=== PATIENT | female | born 1990 | race Two or more races ===

== ENCOUNTER 2017-12-18 14:04 | Emergency (ER) | END 2017-12-18 17:11 | disposition home or self-care (01) ==

== ENCOUNTER 2018-04-26 13:03 | Outpatient (CLI) | payer OTHER ==
[~2018-04-26] VITALS: Ht 144.8 cm; Wt 59.0 kg
[~2018-04-26 13:03] MED LIST: ACET500C5 PO; DENIES
[2018-04-26 14:14] VITALS: Ht 144.8 cm; Wt 59.0 kg
[2018-04-26] MEDS ORDERED: PNV11TAB PO (14:14)
[2018-04-26 14:16] VITALS: BP 106/71; PULSE 89; RESP 19
--- NOTE | 2018-04-26 16:05 | PN ---
Triage Information Date/Time Reason for visit: Patient was seen in dental clinic today, referred for antepartum testing and EFW for rule out IUGR Weeks of Gestation 37 weeks /Para G1 Diabetes: none Hypertention: none Objective Vital Signs Date Temp Pulse Resp B/P (MAP) Pulse Ox O2 O2 Flow FiO2 Time Delivery Rate 04/26/18 98.1 89 19 106/71 Room Air 14:16 (83) Heart Rate: 130's Contractions: None Disposition: Discharge Assessment/Plan 28-year-old 1 with single intrauterine at 37 weeks with a FUENTES of 05/23/[address] [facility] for antepartum testing and rule out IUGR. She states good movement. She denies nausea, vomiting, shortness of breath, chest pain, abdominal pain, headache, visual changes, vaginal bleeding or LOF. -FHR: No sign of metabolic acidosis- Category I -Contractions: None -Ultrasound performed: DEVENDRA 8.2, biophysical profile 8 out of 8. EFW 3064g. Patient reassured -Symptoms and sign of labor, preeclampsia, kick count discussed with patient, she voiced understanding. All of her questions answered. -Patient was discharged home in stable condition with the appropriate discharge instructions provided. I would like patient to have close follow-up with her primary physician or outpatient clinic in 1-2 days or return to triage for worsening symptoms or any other urgent concerns. VALERIA CULLEN Apr 26, 2018 16:05
--- NOTE | 2018-04-26 16:50 | TRIAGE ---
OB Triage Datetime Report Generated by CPN: 04/26/2018 16:50 Datetime: 04/26/2018 15:32 Vaginal Exam Dilatation (cms): 0.0 Effacement (%): 0 Station: -3 Exam By: A GHUKASYAN Datetime: 04/26/2018 15:29 Labor Evaluation Frequency: irregular Monitor Mode: External Duration (sec)2399: 60-150 Quality: Mild Pattern: Normal: <= 5 Contractions in 10 Minutes Resting Tone [place]: Relaxed Heart Rate FHR Baseline Rate: 140 Monitor Mode: External US FHR Baseline Changes: Bradycardia Variability: Moderate 6-25 bpm Accelerations: 15X15 Decelerations: None Category: Category I Datetime: 04/26/2018 14:21 Assessment Type: Triage Maternal Assessment Level of Consciousness: Fully Conscious DTR's/Clonus: DTRs 2+; No Clonus Headache: Denies Blurred Vision: No Respiratory Effort: Unlabored; Regular Rhythm; Equal Expansion Breath Sounds, Left: Clear and Equal Breath Sounds, Right: Clear and Equal Nausea/Vomiting: Denies RUQ Epigastric Pain: Denies Lower Extremities Edema: None Degree: None Upper Extremities Edema: None Degree: None Facial Edema: None Fall Risk Assessment History of Falling: (0) No Secondary Diagnosis: (0) No Ambulatory Aid: (0) Bedrest/Nurse Assist IV Therapy: (0) No Gait: (0) Normal/Bedrest/Immobile Mental Status: (0) Oriented to Own Ability Fall Score: 0 Fall Risk Score Definition: No Risk: No action required Labor Evaluation Frequency: OCCAS Monitor Mode: External Duration (sec)2399: 50-80 Quality: Mild Pattern: Normal: <= 5 Contractions in 10 Minutes Resting Tone [place]: Relaxed Heart Rate FHR Baseline Rate: 145 Monitor Mode: External US Variability: Moderate 6-25 bpm Accelerations: 15X15 Decelerations: None Category: Category I Datetime: 04/26/2018 14:19 Time of Arrival: 04/26/2018 12:59 EGA: 37.0 Arrived By: Ambulatory Arrived From: Office Chief Complaint: R/O IUGR Movement: Present Contractions: Denies/Absent Rupture of Membranes: Denies Vaginal Bleeding: None Vaginal Discharge: Denies Recent Sexual Intercouse: Denies Abdominal Trauma: Not Applicable Patient Complaints: Other Time Provider Notified: 04/26/2018 15:37 Provider Notified: DR CULLEN Initial Plan: JESSENIA LEALP EFW
== END 2018-04-26 15:55 | disposition home or self-care (01) ==
LOC: OBT 13:03 → L-D 13:04 → OBT 15:55
PROVIDERS: ATTEND Obstetrics & Gynecology
DX: O36.5930 Maternal care for other known or suspected poor fetal growth, third trimester, not applicable or unspecified (principal); Z3A.37 37 weeks gestation of pregnancy
CPT/HCPCS: 76815; 76818; Z7500; G0463

== ENCOUNTER 2018-05-16 20:44 | Inpatient (IN) | payer OTHER ==
[~2018-05-16] VITALS: Ht 147.3 cm; Wt 61.1 kg
[~2018-05-16 20:44] MED LIST changes: -ACET500C5 PO; +PNV11TAB PO
[2018-05-16 21:01] VITALS: BP 113/75; PULSE 82; RESP 18
[2018-05-16 21:02] VITALS: Ht 147.3 cm; Wt 61.1 kg
--- NOTE | 2018-05-16 21:39 | TRIAGE ---
OB Triage Datetime Report Generated by CPN: 05/16/2018 21:39 Datetime: 05/16/2018 21:30 Vaginal Exam Dilatation (cms): 3.0 Effacement (%): 60 Station: -2 Exam By: greg Vaginal Bleeding: None Cervix, Consistency: Soft Cervix, Position: Midposition Datetime: 05/16/2018 20:59 Assessment Type: Triage Maternal Assessment Level of Consciousness: Fully Conscious DTR's/Clonus: DTRs 2+; No Clonus Headache: Denies Blurred Vision: No Respiratory Effort: Unlabored; Regular Rhythm; Equal Expansion Breath Sounds, Left: Clear and Equal Breath Sounds, Right: Clear and Equal Nausea/Vomiting: Denies RUQ Epigastric Pain: Denies Lower Extremities Edema: None Degree: None Upper Extremities Edema: None Degree: None Facial Edema: None Fall Risk Assessment History of Falling: (0) No Secondary Diagnosis: (0) No Ambulatory Aid: (0) Bedrest/Nurse Assist IV Therapy: (0) No Gait: (0) Normal/Bedrest/Immobile Mental Status: (0) Oriented to Own Ability Fall Score: 0 Fall Risk Score Definition: No Risk: No action required Datetime: 05/16/2018 20:55 Labor Evaluation Monitor Mode: External Heart Rate Monitor Mode: External US Datetime: 05/16/2018 20:48 Time of Arrival: 05/16/2018 20:40 EGA: 39.0 Arrived By: Wheelchair Arrived From: Home Chief Complaint: PT HERE C/O UC'S Movement: Present Contractions: Irregular Time Contractions Began: 05/16/2018 09:00 Rupture of Membranes: Denies Vaginal Bleeding: None Vaginal Discharge: Denies Recent Sexual Intercouse: Denies Abdominal Trauma: Not Applicable Patient Complaints: Contractions; Cramping; Back Pain Time Provider Notified: 05/16/2018 21:35 Provider Notified: HADADIAN Initial Plan: EFM/SVE Datetime: 04/26/2018 14:21 Fall Score: 0 Fall Risk Score Definition: No Risk: No action required Datetime: 04/26/2018 14:19 EGA: 36.1
[2018-05-16] MEDS ORDERED: BUTORPHANOL 2 MG INJ IV PRN (22:00)
[2018-05-16] MEDS ORDERED: CARBOPROST 250 MCG INJ IM PRN (22:00)
[2018-05-16] MEDS ORDERED: OXYTOCIN 30 UNITS/LR 500 ML IV SCH ×2 (22:00)
[2018-05-16] MEDS ORDERED: MISOPROSTOL 200 MCG TAB PR PRN (22:00)
[2018-05-16] MEDS ORDERED: LIDOCAINE 1% (MPF) 30 ML INJ INJ PRN (22:00)
[2018-05-16] MEDS ORDERED: OXYTOCIN 30 UNITS/LR 500 ML IV PRN (22:00)
[2018-05-16] MEDS ORDERED: IBUPROFEN 600 MG TAB PO PRN (22:00)
[2018-05-16] MEDS ORDERED: METHYLERGONOVINE 0.2 MG INJ IM PRN (22:00)
[2018-05-16] MEDS: LACTATED RINGER'S 1,000 ML IV SCH ×2 (22:11→23:23)
[2018-05-17] MEDS: OXYTOCIN 30 UNITS/LR 500 ML IV SCH ×2 (03:05→03:11)
--- NOTE | 2018-05-17 03:09 | HP ---
Date/Time of Note Date/Time of Note DATE: 05/17/18 TIME: 03:07 OB - History Hx of Present Chief Complaint: contractions Estimated Due Date: May 23, 2018 : 1 Para: 0 Spontaneous : 0 Therapeutic : 0 Care: Good Care Ultrasounds: Normal mid trimester US Obstetrical Complications: None Medical Complications: None Past Family/Social History * Past Medical, Surgical, Family and Obstetric Histories reviewed from chart. GBS Status: Negative OB Admission Exam Vital Signs Vital Signs Vital Signs Date Temp Pulse Resp B/P (MAP) Pulse Ox O2 O2 Flow FiO2 Time Delivery Rate 05/16/18 98.3 82 18 113/75 Room Air 21:01 (88) Physical Exam HEENT: WNL Heart: Rhythm Normal Lungs: Clear, Equal Abdomen: WNL Extremities: Normal Reflexes: Normal Cervical Dilatation: 3cm Effacement: 75% Station: -1 Membranes: Intact Heart Rate: 120's Accelerations: Accelerations Present Decelerations: No Decelerations Varibility: Moderate Last 72 hours Lab Results CBC & BMP 05/16/18 21:50 OB Assessment/Plan Reason for admission: active labor Plan: Expectant Management KATT ABERNATHY MD May 17, 2018 03:09
--- NOTE | 2018-05-17 03:10 | LDN ---
Date/Time of Note Date/Time of Note DATE: 05/17/18 TIME: 03:09 Delivery Summary Weeks of Gestation 39 weeks Placenta Delivered: Spontaneously Meconium: none Episiotomy: No Perineal laceration: 0 Anesthesia type: None Estimated blood loss: 100 Sponge & Needle done & correct: Yes All needle counts correct: Yes Any foreign bodies felt in the: No Infant Delivery Information Sex Infant Sex: male Apgars 1 Minute: 8 5 Minute: 9 Suctioning Nose & mouth suctioned at palma: No Delee suction performed: No Umbilical Cord Umbilical cord with: 3 Vessels Cord presentations: nuchal cord Nuchal cord present X: 1 Cord Blood was obtained: Yes Mother & Baby Disposition Disposition Mom & Baby to Maternity; Good: Yes KATT ABERNATHY MD May 17, 2018 03:10
[2018-05-17 05:20] VITALS: BP 111/60; PULSE 75; RESP 18
[2018-05-17] MEDS ORDERED: BENZOCAINE 20% 56 ML SPRAY TOP PRN (05:30)
[2018-05-17] MEDS ORDERED: OXYTOCIN 30 UNITS/LR 500 ML IV PRN (05:30)
[2018-05-17] MEDS ORDERED: MISOPROSTOL 200 MCG TAB PR PRN (05:30)
[2018-05-17] MEDS ORDERED: WITCH HAZEL/GLYCERIN PAD PR PRN (05:30)
[2018-05-17] MEDS ORDERED: ACETAMINOPHEN 325 MG TAB PO PRN (05:30)
[2018-05-17] MEDS ORDERED: DIBUCAINE 1% 30 GM OINT TOP PRN (05:30)
[2018-05-17] MEDS ORDERED: HYDROCODONE/APAP (5/325) TAB PO PRN (05:30)
[2018-05-17] MEDS ORDERED: CARBOPROST 250 MCG INJ IM PRN (05:30)
[2018-05-17] MEDS ORDERED: METHYLERGONOVINE 0.2 MG INJ IM PRN (05:30)
[2018-05-17] MEDS: IBUPROFEN 600 MG TAB PO SCH ×4 (06:00→23:33)
[2018-05-17 08:15] VITALS: BP 111/71; PULSE 81; RESP 18
[2018-05-17] MEDS: LACTATED RINGER'S 1,000 ML IV* SCH ×2 (09:00→13:19)
[2018-05-17] MEDS: SENNA/DOCUSATE NA (8.6MG/50MG) TAB PO SCH ×2 (09:55→21:14)
[2018-05-17 12:17] VITALS: BP 112/70; PULSE 92; RESP 18
--- NOTE | 2018-05-17 15:51 | PN ---
Date/Time of Note Date/Time of Note DATE: 05/17/18 TIME: 15:48 OB Subjective Subjective Subjective PPD# 0 Patient is doing well. She denies nausea, vomiting, shortness of breath, chest pain, headache. She has been ambulating without difficulty, tolerating regular diet. Pain is well controlled on current medications OB Objective Objective Objective VS - Last 72 Hours, by Label Date Temp Pulse Resp B/P (MAP) Pulse Ox O2 O2 Flow FiO2 Time Delivery Rate 05/17/18 98.9 92 18 112/70 Room Air 12:17 (84) 05/17/18 98.8 81 18 111/71 Room Air 08:15 (84) 05/17/18 98.3 75 18 111/60 Room Air 05:20 (77) 05/16/18 98.3 82 18 113/75 Room Air 21:01 (88) General: AAO X 3, comfortable, NAD, appropriate mood and affect. ABD: +BS. Soft, non-tender. Uterus 2 cm below umbilicus Flank: No CVA tenderness (B/L) LE: Mild edema. No clubbing, cyanosis, thigh or calf tenderness (B/L). Homans 'sign is negative OB Assessment/Plan Other plan: 28 years old 1 para 1001 s/p normal vaginal delivery at 39 weeks and 1 day. PPD#0 - AF, VSS - Baby is doing well, at bed side. She is bonding well - Contraception methods with R/B/A/FR discussed - Continue care - Discharge home tomorrow - Rx and instruction given - Follow up in 2 and 6 weeks at clinic VALERIA CULLEN May 17, 2018 15:51
--- NOTE | 2018-05-17 15:53 | DS ---
Date/Time of Note Date/Time of Note DATE: 05/17/18 TIME: 15:52 Obstetrical Discharge Record Final Diagnosis Final Diagnosis: Term delivered Other Final Diagnosis 28 years old 1 para 1001 s/p normal vaginal delivery at 39 weeks and 1 day. PPD#0. Course is unremarkable. She is ambulating and tolerating regular diet. She is voiding without difficulty. Pain is controlled on current medication. - AF, VSS - Baby is doing well, at bed side. She is bonding well - Contraception methods with R/B/A/FR discussed - Continue care - Discharge home tomorrow - Rx and instruction given - Follow up in 2 and 6 weeks at clinic Condition on Discharge Physical Assessment Last Vitals: Vital Signs Date Temp Pulse Resp B/P (MAP) Pulse Ox O2 O2 Flow FiO2 Time Delivery Rate 05/17/18 98.9 92 18 112/70 Room Air 12:17 (84) Voiding: Yes Bowel Movement: Yes Breast: Soft, non-tender Fundus: Firm Calf Tenderness: No Patient Condition: Stable VALERIA CULLEN May 17, 2018 15:53
[2018-05-17 16:20] VITALS: BP 100/65; PULSE 80; RESP 19
[2018-05-17 19:30] VITALS: BP 106/59; PULSE 94; RESP 18
[2018-05-18 03:34] VITALS: BP 106/71; PULSE 76; RESP 18
[2018-05-18] MEDS: IBUPROFEN 600 MG TAB PO SCH ×4 (05:50→23:59)
[2018-05-18 08:00] VITALS: BP 102/73; PULSE 79; RESP 18
[2018-05-18] MEDS: SENNA/DOCUSATE NA (8.6MG/50MG) TAB PO SCH ×2 (09:26→23:59)
--- NOTE | 2018-05-18 15:37 | QN ---
Documentation Comment day #1 Status post Patient stable and afebrile Vital signs stable VS - Last 72 Hours, by Label Date Temp Pulse Resp B/P (MAP) Pulse Ox O2 O2 Flow FiO2 Time Delivery Rate 05/18/18 78.0 79 18 102/73 Room Air 08:00 (83) 05/18/18 97.9 76 18 106/71 Room Air 03:34 (83) 05/17/18 98.6 94 18 106/59 Room Air 19:30 (75) 05/17/18 98.2 80 19 100/65 Room Air 16:20 (77) 05/17/18 98.9 92 18 112/70 Room Air 12:17 (84) 05/17/18 98.8 81 18 111/71 Room Air 08:15 (84) 05/17/18 98.3 75 18 111/60 Room Air 05:20 (77) 05/16/18 98.3 82 18 113/75 Room Air 21:01 (88) Hematology - 72 Hrs Test 05/16/18 21:50 05/18/18 09:32 Hematocrit 40.3 % (37.0-47.0) 38.9 % (37.0-47.0) Hemoglobin 14.3 g/dl (12.0-16.0) 13.3 g/dl (12.0-16.0) Mean Corpuscular 32.6 pg (29.0-33.0) 32.0 pg (29.0-33.0) Hemoglobin Mean Corpuscular 35.5 g/dl (32.0-37.0) 34.2 g/dl (32.0-37.0) Hemoglobin Concent Mean Corpuscular Volume 91.8 fl (82.0-101.0) 93.7 fl (82.0-101.0) Mean Platelet Volume 12.0 fl (7.4-10.4) H 11.5 fl (7.4-10.4) H Platelet Count 160 10^3/UL (140-415) # 172 10^3/UL (140-415) Red Blood Count 4.39 10^6/ul (4.20-5.40) 4.15 10^6/ul (4.20-5.40) L Red Cell Distribution 12.7 % (11.5-14.5) 13.2 % (11.5-14.5) Width White Blood Count 9.6 10^3/ul (4.8-10.8) # 14.2 10^3/ul (4.8-10.8) #H Abdomen soft, fundus firm Perineum intact Extremities nontender Assessment and plan Patient stable and doing well Continue with routine care LLOYD GANN MD May 18, 2018 15:37
[2018-05-18 15:41] VITALS: BP 111/71; PULSE 80; RESP 18
[2018-05-18 16:49] VITALS: BP 108/77; PULSE 67; RESP 18
[2018-05-18 20:40] VITALS: BP 111/74; PULSE 70; RESP 19
[2018-05-19 03:30] VITALS: BP 100/70; RESP 19
[2018-05-19] MEDS: IBUPROFEN 600 MG TAB PO SCH ×2 (06:16→12:20)
[2018-05-19 08:00] VITALS: BP 99/57; PULSE 81; RESP 18
[2018-05-19] MEDS ORDERED: DIPHTH/TET/ACEL PERTUSS (ADULT) 0.5 ML VIAL IM* ONE (09:00)
[2018-05-19] MEDS: SENNA/DOCUSATE NA (8.6MG/50MG) TAB PO SCH (09:00)
--- NOTE | 2018-05-19 10:39 | PD.PPDC ---
MEDICAL MALPRACTICE PARALEGAL Discharge Instruction Diagnosis [id number] Final Diagnosis: Ylzai9a s/p Condition [id number] Patient Condition: [id number] Stable Diet Mfrub6El Diet: [id number] Resume Regular Diet Activity/Restrictions Dsyax0Ks Activity: [id number] May Shower [id number] Restrictions: Qpodv0i No Lifting No Sexual Activity Nothing in the Vagina No [place] No Tampons, douche Follow-up Follow-up with Physician: 2, Week/Weeks Return to clinic for [id number] [employer] Instructions: Ubqgf3g Fever greater than 101 Chills Worsening abdominal pain Excessive Vaginal Bleeding More than 2 pads per hour Unable to tolerate diet [id number] OB Instructions: Wespf0o Breast Tenderness Depression Blurried Vision ТАТЬЯНА HODGES MD May 19, 2018 10:39
--- NOTE | 2018-05-19 10:41 | DS ---
Date/Time of Note Date/Time of Note DATE: 05/19/18 TIME: 10:40 Obstetrical Discharge Record Final Diagnosis Final Diagnosis: Term delivered Vaginal Delivery Obstetrical Delivery: Spontaneous Complications Augmentation: No Induction: No Rupture of Membranes: No Condition on Discharge Physical Assessment Last Vitals: VSS afebrile Voiding: Yes Bowel Movement: Yes Breast: Soft, non-tender Fundus: Firm Abdomen and Incision: n/a Episiotomy: n/a Calf Tenderness: No Patient Condition: Stable ТАТЬЯНА HODGES MD May 19, 2018 10:41
--- NOTE | 2018-05-20 18:22 | DELSUM ---
Delivery Summary A-C Datetime Report Generated by CPN: 05/20/2018 18:21 DELIVERY PERSONNEL Judicial Law Clerk: Fistell, Brad MATERNAL INFORMATION Delivery Anesthesia: None Medications in Delivery: oxytocin 30 units in LR Delivery QBL (ml): 100 Placenta Cultured: No Maternal Complications: None LABOR SUMMARY EDC: 05/23/2018 00:00 No. Babies in Womb: 1 Attempted: No Labor Anesthesia: None LABOR INFORMATION Reason for Induction: Not Applicable Onset of Labor: 05/16/2018 09:00 Complete Dilatation: 05/17/2018 02:45 Oxytocin: N/A Group B Beta Strep: Negative Antibiotics # of Doses: 0 Steroids Given: None Reason Steroids Not Administered: Not Applicable MEMBRANES Membranes Rupture Method: Spontaneous Rupture of Membranes: 05/17/2018 02:19 Length of Rupture (hr): 0.57 Amniotic Fluid Color: Clear Amniotic Fluid Amount: Large Amniotic Fluid Odor: Normal STAGES OF LABOR Stage 1 hr: 17 Stage 1 min: 45 Stage 2 hr: 0 Stage 2 min: 8 Stage 3 hr: 0 Stage 3 min: 7 Total Time in Labor hr: 18 Total Time in Labor min: 0 VAGINAL DELIVERY Episiotomy: None Laceration Extension: N/A Laceration Type: None Laceration Repair: Not Applicable Initial Vag Sponge Count: 10 Final Vag Sponge Count: 10 Initial Vag Sharps Count: 1 Final Vag Sharps Count: 1 Sponge Count Correct: Yes Sharps Count Correct: Yes BABY A INFORMATION Delivery Date/Time: 05/17/2018 02:53 Method of Delivery: Vaginal Born in Route : No : N/A Forceps: N/A Vacuum Extraction: N/A Shoulder Dystocia : N/A SHOULDER DYSTOCIA BABY A Infant Delivery Date/Time: 05/17/2018 02:53 PRESENTATION/POSITION BABY A Presentation: Cephalic Cephalic Presentation: Vertex Vertex Position: Right Occipital Anterior Breech Presentation: N/A PLACENTA INFORMATION BABY A Placenta Delivery Time : 05/17/2018 03:00 Placenta Method of Delivery: Spontaneous Placenta Status: Delivered SCORES BABY A Heart Rate 1 min: >100 bpm Resp Effort 1 min: Good Cry Reflex Irritability 1 min: Cough/Sneeze/Pulls Away Muscle Tone 1 min: Active Motion Color 1 min: Blue/Pale Resuscitation Effort 1 min: Tactile Stimulation SCORE 1 MIN: 8 Heart Rate 5 min: >100 bpm Resp Effort 5 min: Good Cry Reflex Irritability 5 min: Cough/Sneeze/Pulls Away Muscle Tone 5 min: Active Motion Color 5 min: Body [place], Extremit Blue Resuscitation Effort 5 min: N/A SCORE 5 MIN: 9 INFANT INFORMATION BABY A Gestational Age at Delivery: 39.1 Gestational Status: Full Term- 39- 40.6 Weeks Outcome : Liveborn Infant Condition : Stable Infant Sex: Male IDENTIFICATION/MEDS BABY A ID Band Number: [id number] ID Band Location: Right Leg; Left Arm Sensor Applied: Yes Sensor Number: [id number] Sensor Location : Cord Clamp Vitamin K Given : Not Given Erythromycin Given: Not Given WEIGHT/LENGTH BABY A Infant Birthweight (gm): 3140 Infant Weight (lb): 6 Weight (oz): 15 Infant Length (in): 19.50 Infant Length (cm): 49.53 CORD INFORMATION BABY A No. Cord Vessels: 3 Nuchal Cord : Around Neck x1, Loose Cord Blood Taken: Yes (Annotations: Data stored by [facility] on behalf of user) Banking/Donate Info: n/a Infant Suction: Mouth; Nose ASSESSMENT BABY A Complications: Multiple Variable Decels; Other Physical Findings at Delivery: Other Respirations: Appears Normal Supplemental Nurse/ALS Called : No Care By: RAJ LEE Transferred To: Remains with Mother
== END 2018-05-19 18:21 | disposition home or self-care (01) | DRG 807 ==
LOC: OBT 20:44 → L-D 20:45 → OBT 21:30 → L-D 21:30 → PP1 05-17 05:11
PROVIDERS: ADMIT Obstetrics & Gynecology; ATTEND Obstetrics & Gynecology
PROC: 10E0XZZ Delivery of Products of Conception, External Approach (ICD-10-PCS; principal; 2018-05-17)
DX: O69.81X0 Labor and delivery complicated by cord around neck, without compression, not applicable or unspecified (principal); Z37.0 Single live birth; Z3A.39 39 weeks gestation of pregnancy
CPT/HCPCS: 85025; 85610; 85730; 86592; 86885; 86900; 86901; 87340; G0463; J0595; J2590; J7120